=== PATIENT | female | born 2000 | race Caucasian/White ===

== ENCOUNTER 2022-09-07 07:36 | Outpatient (CLI) | payer BC ==
[2022-09-07] VITALS (17 sets, daily range): BP systolic 86–124; BP diastolic 42–87
== END 2022-09-07 23:59 | disposition home or self-care (01) ==
LOC: RAD 07:36
PROVIDERS: ATTEND Internal Medicine Interventional Cardiology
DX: R55 Syncope and collapse (principal); R42 Dizziness and giddiness; I95.89 Other hypotension
CPT/HCPCS: 93660